=== PATIENT | male | born 1940 | race Caucasian/White ===

== ENCOUNTER 2017-07-26 06:45 | Day surgery (SDC) | payer MEDICARE, MEDICAID ==
[2017-07-25 08:57] LABS: BASOPHILS 0.4 % (0-2); EOSINOPHILS 3.3 % (0-7); HEMATOCRIT 44.9 % (42.0-54.0); HEMOGLOBIN 15.4 g/dL (13.5-17.5); IMMATURE GRANULOCYTES 0.3 % (0-5); LYMPHOCYTES 27.7 % (15-50); MCH 31.9 pg (26.0-34.0); MCHC 34.3 g/dL (31.0-37.0); MEAN PLATELET VOLUME 11.3 fL (7.4-10.4); MONOCYTES 6.7 % (2-11); NEUTROPHILS 61.6 % (40-80); PLATELET COUNT 149 10x3/uL (130-400); RBC 4.83 10x6/uL (4.20-6.10); RDW 14.1 % (11.5-14.5); WBC 6.7 10x3/uL (4.8-10.8)
[2017-07-25 09:18] LABS: APTT 24.1 SECONDS (22.8-39.4); INR 0.97 (0.85-1.17); PROTIME 12.5 SECONDS (11.6-15.0)
[~2017-07-26] VITALS: Ht 177.8 cm; Wt 126.6 kg
--- NOTE | ~2017-07-26 | OP ---
PATIENT NAME: SEEMA GAFFNEY MEDICAL RECORD: [id number] :41 LOCATION:[facility] ADMISSION DATE: SURGEON: RITESH BILLY MD DATE OF OPERATION: 07/26/2017 SURGEON: Ritesh Billy MD ANESTHESIA: MAC by Dr. Isaak Medina. PREOPERATIVE DIAGNOSES: History of bladder cancer, obstructive benign prostatic hypertrophy. FINDINGS: Obstructive benign prostatic hypertrophy with trilobar hyperplasia. Single ureteral orifices bilaterally. No bladder tumors. PROCEDURE: Cystoscopy. BLOOD LOSS: None. CLINICAL HISTORY: This is a 77-year-old male with a previous history of bladder cancer. This was treated 12 years ago at the [facility] in [place], [place]. He then had surveillance cystoscopy through the [facility]. The last cystoscopy was 6 years ago in [place] and thereafter, he left [place]. Since then, he has not had any further surveillance cystoscopy done. He does have some obstructive BPH symptoms and is using tamsulosin to treat this. He was a former smoker, 1 pack per day for 40 years and quit 20 years ago. He is not allergic to any medications. I am performing cystoscopy today to establish a baseline and to make sure that he does not have any bladder tumors. He was given Ancef 3 grams IV exploration manager to the OR. DESCRIPTION OF PROCEDURE: The patient was given IV sedation. He was placed in the dorsal lithotomy position and prepped and draped. A 21-Libyan cystoscope with 30-degree lens was used for visualization. Penile urethra was normal with no strictures. Prostatic urethra was obstructive with large prominent veins on the prostatic urethra. Going into the bladder, the bladder was mildly trabeculated. No bladder tumors were seen. Single ureteral orifices are seen on each side. The bladder was emptied through the scope, and then the scope was removed. I will start the patient on finasteride in order to shrink his prostate and the prostatic veins. He is already taking tamsulosin. TRANSINT:[id number] Voice Confirmation ID: [id number] DOCUMENT ID: [id number] RITESH BILLY MD at 1350 CC: [id number] DICTATION DATE: 07/26/17 1003 PROMOTIONS MANAGER: 07/26/17 1211 [facility] [address] [place] [address]
[~2017-07-26 06:45] MED LIST: FLOMAX0.4 MG PO; NORVASC5 MG PO; PRAVACHOL40 MG PO; ZANTAC150 MG PO; ZESTRIL40 MG PO
[2017-07-26 07:24] VITALS: BP 151/84; Ht 177.8 cm; Wt 126.6 kg
[2017-10-04] MEDS ORDERED: PROSCAR5 MG PO (13:26)
== END 2017-07-26 11:25 | disposition home or self-care (01) ==
LOC: D.OPS 06:45 → D.PAN 09:00 → D.OPS 09:00 → D.PAN 10:00 → D.OPS 11:25
PROVIDERS: Anesthesiology
DX: N40.1 Benign prostatic hyperplasia with lower urinary tract symptoms (principal); N13.8 Other obstructive and reflux uropathy; N40.0 Benign prostatic hyperplasia without lower urinary tract symptoms; N32.89 Other specified disorders of bladder; Z87.891 Personal history of nicotine dependence; Z85.51 Personal history of malignant neoplasm of bladder; Z01.812 Encounter for preprocedural laboratory examination

== ENCOUNTER → 2017-09-13 07:13 | Outpatient (CLI) | payer MEDICARE, MEDICAID ==
[~2017-09-13] VITALS: Ht 177.8 cm; Wt 129.5 kg
--- NOTE | ~2017-09-13 | HEMODYNAMI ---
PATIENT:SEEMA GAFFNEY MEDICAL RECORD: [id number] : 41 LOCATION:D.[facility] ADMISSION DATE: 09/13/17 Generatedon:09/13/20178:41 Patient name: SEEMA GAFFNEY Patient #: [id number] SSN: DO B: 1940 Date of study: 09/13/2017 Page: Of Hemodynamic Procedure Report Patient Data Patient Demographics Procedure consent was obtained First Name: SEEMA Gender: Male Last Name: YEIMY : 1940 [facility] Initial: JOSIE Age: 77 year(s) Patient #: [id number] Race: Unknown Additional ID: [id number] Contact details Address: [address] [place] [address] circle State: [place] City: [facility] Zip code: [address] Past Medical History Allergies: No known allergies Admission Admission Data Admission Date: 09/13/2017 Admission Time: 7:13 Lab Results Lab Result Date: 09/13/2017 Lab Result Time: 0:00 Biochemistry Name Units Result Min Max BUN mg/dl 15 --(--*-)-- 7 18 Creatinine mg/dl 0.9 --(-*--)-- 0.6 1.3 CBC Name Units Result Min Max Hemoglobin g/dl 15.8 --(--*-)-- 13.5 17.5 Procedure Procedure Types Cath Procedure Diagnostic Procedure [facility] w/Coronaries Aortic Root Angiography Sedation Charges Moderate Sedation up to 15 minutes Procedure Description Procedure Date Procedure Date: 09/13/2017 Procedure Start Time: 8:19 Procedure End Time: 8:40 Procedure Staff Name Function Mark Marroquin MD Performing Physician Karley Shelley RT Monitor Shemar Taylor RN Nurse Brandee Borges RT Scrub Procedure Data Cath Procedure Fluoroscopy Diagnostic fluoroscopy Total fluoroscopy Time: 5.1 time: 5.1 min min Diagnostic fluoroscopy Total fluoroscopy dose: 942 dose: 942 mGy mGy Contrast Material Contrast Material Type Amount (ml) Isovue 300 83 Entry Location Entry Primary Successful Side Size Upsize Upsize Entry Closure Villagomez ccessful Closure Location (Fr) 1 (Fr) 2 (Fr) Remarks Device Remarks Radial Right 6 Fr Mechanical artery Short Compression Femoral Right 5 Fr Exoseal artery Estimated blood loss: 5 ml Diagnostic catheters Device Type Used For End Catheter Placement DIAGNOSTIC Peewee 110cm LV Angiography 5Fr catheter ([id number]) MULTIPACK JL 4.0 5Fr Left Coronary catheter Angiography DIAGNOSTIC JL 5 5Fr Left Coronary catheter ([id number]) Angiography MULTIPACK 3DRC 5Fr Right Coronary catheter Angiography MULTIPACK Pigtail 5 Fr LV Angiography catheter MULTIPACK Pigtail 5 Fr Aortic Root catheter Angiography Procedure Complications No complications Procedure Medications Medication Administration Route Dosage 0.9% NaCl I.V. 100 ml/hr Oxygen etCO2 Nasal cannula 2 l/min Heparin Flush Bag added to field 2 bags (1000units/500ml NS) Lidocaine 2% added to field 20 Radial Cocktail added to field 1 syringe (Verapomil 2mg/Nitro 400mcg/Heparin 1500units) Versed I.V. 2 mg Fentanyl I.V. 100 mcg Radial Cocktail I.A. 1 syringe (Verapomil 2mg/Nitro 400mcg/Heparin 1500units) Hemodynamics Rest HGB: 15.8 (g/dl) Heart Rate: 69 (bpm) Pressure Samples Time Site Value (mmHg) Purpose Heart Use Rate(bpm) 8:33 LV 154/-2,19 EDP 86 8:34 AO 144/81(107) Pullback 84 8:34 LV 159/1,16 Pullback 84 Gradients Valve Time Site 1 Site 2 Mean SEP/DFP Peak To Heart Use (mmHg) (sec/min) Peak Rate (mmHg) (bpm) Aortic 8:34 LV AO 13 18 15 84 159/1,16 144/81(107) Calculations Valve P-P Mean Valve Index Valve Source Name Gradient Area Flow (cm2) Aortic 15 13 15 13 Snapshots Pre Cath Intra NCS Post Cath Vital Signs Time Heart Resp SPO2 etCO2 NIBP (mmHg) Rhythm Pain Sedation Rate (ipm) (%) (mmHg) Status Level (bpm) 8:05:45 76 16 96 36.8 157/91(121) NSR 0 (11) 10(A) , No pain 8:10:34 81 17 96 38.3 142/81(110) NSR 0 (11) 10(A) , No pain 8:15:23 71 16 96 35.3 156/79(124) NSR 0 (11) 10(A) , No pain 8:20:15 71 15 95 38.3 152/78(122) NSR 0 (11) 10(A) , No pain 8:25:02 92 16 92 33.1 129/89(105) NSR 0 (11) 10(A) , No pain 8:29:45 88 16 93 34.6 140/83(103) NSR 0 (11) 10(A) , No pain 8:35:04 87 16 95 36.1 121/86(111) NSR 0 (11) 10(A) , No pain 8:39:45 79 16 94 34.6 136/84(112) NSR 0 (11) 10(A) , No pain Medications Time Medication Route Dose Verified Delivered Reason Notes Effectiveness by by 8:05:53 0.9% NaCl I.V. 100 Shemar Shemar Per ml/hr Lorrohit Taylor physician RN RN 8:06:04 Oxygen etCO2 2 l/min Shemar Shemar Per Nasal Claudia Taylor physician cannula RN RN 8:06:14 Heparin Flush added 2 bags Shemar Shemar used for Bag to Lorigan Claudia procedure (1000units/500ml field RN RN NS) 8:06:27 Lidocaine 2% added 20ml Shemar Shemar for local to vial Lorigan Lorigan anesthetic field RN RN 8:06:51 Radial Cocktail added 1 Shemar Shemar used for (Verapomil to syringe Lorigan Tasneemigan procedure 2mg/Nitro field RN RN 400mcg/Heparin 1500units) 8:13:24 Versed I.V. 2 mg Shemar Shemar for sedation Claudia Taylor RN RN 8:13:34 Fentanyl I.V. 100 mcg Shemar Shemar for sedation Claudia Taylor RN RN 8:19:29 Radial Cocktail I.A. 1 Shemar Mark for (Verapomil syringe Claudia earl 2mg/Nitro RN 400mcg/Heparin 1500units) Procedure Log Time Note 7:40:23 Karley Shelley RT(R) sent for patient. Start room use. 7:48:56 Lab Result : BUN 15 mg/dl 7:48:56 Lab Result : Hemoglobin 15.8 g/dl 7:48:56 Lab Result : Creatinine 0.9 mg/dl 7:49:16 Patient allergic to No known allergies 7:49:21 Signed procedure consent form obtained from patient. 7:49:24 Time tracking: Regular hours (M-F 7:00 - 5:00) 7:49:28 Plan of Care:Hemodynamics will remain stable., Cardiac rhythm will remain stable., Comfort level will be maintained., Respiratory function will remain adequate., Patient/ family verbilizes understanding of procedure., Procedure tolerated without complication., Recovers from procedure without complications.. 7:50:36 Patient received from Pre/Post Procedure Room to CCL 1 Alert and oriented. Tansferred to table in Supine position. 7:50:41 Warm blankets applied, and lamonte hugger turned on for patient comfort. 7:50:42 Correct patient and procedure confirmed by team. 7:50:42 ECG and BP/O2 sat monitors applied to patient. 7:56:05 Vital chart was started 7:56:06 Full Disclosure recording started 7:56:21 Rhythm: sinus rhythm 7:56:51 H&P Date Dictated: 08/17/2017 Within 30 days and on chart., H&P Addendum completed by physician on day of procedure. (MUST COMPLETE FOR ALL OUTPATIENTS). 7:56:52 Pre-procedure instructions explained to patient. 7:56:52 Pre-op teaching completed and patient verbalized understanding. 7:56:56 Family in waiting room. 7:57:00 Patient NPO since Midnight. 7:57:04 Baseline sample Acquired. 7:57:11 Is the patient allergic to Iodine/contrast media? No. 7:57:17 Patient diabetic? No. 7:57:21 Previous problem with sedation/anesthesia? No ? 7:57:22 Snore? Yes 7:57:27 Sleep apnea? No 7:57:28 Deviated septum? No 7:57:29 Opens mouth fully? Yes 7:57:30 Sticks out tongue? Yes 7:57:44 Airway obstruction? Yes Asthma 7:57:53 Dentures? No ? 7:57:57 Pre procedure: right dorsailis pedis pulse 2+ Normal; easily identifiable; not easily obliterated 7:58:00 Modified Clyde's test Ulnar < 7 seconds 7:58:03 Patient pain scale 0/10 ?. 7:58:10 IV patent on arrival in left antecubital with 0.9% NaCl at [facility]. 7:58:13 Lab results completed and on chart. 7:58:44 Right Radial & Right Groin area was prepped with chlora-prep and draped in sterile fashion 7:58:45 Alarms reviewed by R. N. 7:58:45 Sharps counted by scrub and verified by R.N. 8:01:17 ACIST Syringe (64256) opened to sterile field. 8:01:18 Medline Cath Pack ([id number]) opened to sterile field. 8:01:18 Bag Decanter (2002S) opened to sterile field. 8:01:19 DIAGNOSTIC WIRE .035 260cm J wire (238344) opened to sterile field. 8:01:19 ACIST Hand Control (91564) opened to sterile field. 8:01:20 ACIST Manifold (13140) opened to sterile field. 8:01:21 MBrace Wrist Support ([id number]) opened to sterile field. 8:01:23 SHEATH 6Fr Prelude Radial ([id number]) opened to sterile field. 8:05:53 0.9% NaCl 100 ml/hr I.V. was administered by Shemar Taylor RN; Per physician; 8:06:04 Oxygen 2 l/min etCO2 Nasal cannula was administered by Shemar Taylor RN; Per physician; 8:06:14 Heparin Flush Bag (1000units/500ml NS) 2 bags added to field was administered by Shemar Taylor RN; used for procedure; 8:06:27 Lidocaine 2% 20ml vial added to field was administered by Shemar Taylor RN; for local anesthetic; 8:06:51 Radial Cocktail (Verapomil 2mg/Nitro 400mcg/Heparin 1500units) 1 syringe added to field was administered by Shemar Taylor RN; used for procedure; 8:07:39 Physician paged 8:07:41 Zero performed for pressure channel P1 8:13:00 Final Timeout: patient, procedure, and site verified with staff and physician. All members of the team are in agreement. 8:13:03 Right Radial site verified by team. 8:13:06 Physical assessment completed. ASA score P 2 - A patient with mild systemic disease as per Mark Marroquin MD. 8:13:09 Sedation plan: IV Moderate Sedation Medication:Versed, Fentanyl 8:13:24 Versed 2 mg I.V. was administered by Shemar Taylor RN; for sedation; 8:13:34 Fentanyl 100 mcg I.V. was administered by Shemar Taylor RN; for sedation; 8:18:33 Procedure started. 8:19:29 Radial Cocktail (Verapomil 2mg/Nitro 400mcg/Heparin 1500units) 1 syringe I.A. was administered by Mark Marroquin MD; for vasodilation; 8:19:36 Local anesthetic to right radial artery with Lidocaine 2% by Mark Marroquin MD.INITIAL ACCESS ONLY 8:19:38 A 6 Fr Short sheath was inserted into the Right Radial artery 8:20:18 A DIAGNOSTIC Peewee 110cm 5Fr catheter ([id number]) was advanced over the wire and used for LV Angiography. Catheter removed, patient has radial loop 8:21:20 SHEATH Prelude 5Fr 0.035 (QLA-9O-13-035) opened to sterile field. 8:21:29 Use device set Multipack Set 8:21:38 DIAGNOSTIC Multipack 5Fr catheter set ([id number]) opened to sterile field. 8:22:49 Local anesthetic to right femoral artery with Lidocaine 2% by Mark Marroquin MD.ADDITIONAL ACCESS 8:24:06 A 5 Fr sheath was inserted into the Right Femoral artery 8:24:45 A MULTIPACK JL 4.0 5Fr catheter was advanced over the wire and used for Left Coronary Angiography. removed, unable to cannulate 8:27:23 A DIAGNOSTIC JL 5 5Fr catheter ([id number]) was advanced over the wire and used for Left Coronary Angiography. 8:29:32 Catheter removed. 8:30:21 A MULTIPACK 3DRC 5Fr catheter was advanced over the wire and used for Right Coronary Angiography. 8:31:48 Catheter removed. 8:32:24 A MULTIPACK Pigtail 5 Fr catheter was advanced over the wire and used for LV Angiography. 8:33:49 LV gram done using MONTALVO 8:33:51 Injector settings: Ml/sec: 10, Volume: 20, 8:33:52 LV hemodynamics recorded. 8:33:56 EF : 60 % 8:34:48 A MULTIPACK Pigtail 5 Fr catheter was advanced over the wire and used for Aortic Root Angiography. 8:35:07 Procedure type changed to Cath procedure, Diagnostic procedure, LHC, LHC w/Coronaries, Aortic Root Angiography, Sedation Charges, Moderate Sedation up to 15 minutes 8:35:13 Catheter removed. 8:35:33 Sheath removed intact; hemostasis achieved with Exoseal to the Right Femoral artery. 8:35:42 Insertion/operative site no bleeding no hematoma. 8:35:45 Post right femoral artery:stable, clean and dry 8:35:52 Sheath removed intact; hemostasis achieved with Mechanical Compression to the Right Radial artery. 8:36:09 Post right radial artery:stable, clean and dry 8:36:10 Procedure ended.(Physican Out) 8:36:39 Fluoroscopy time 05.10 minutes. 8:36:43 Flurop Dose total: 942 8:36:43 Fluoroscopy dose: 942 mGy 8:36:58 Contrast amount:Isovue 300 83ml. 8:37:00 Sharps counted by scrub and verified by R.N. 8:37:02 TR band inflated with 12cc of air. 8:37:07 Post Procedure Pulses reassessed and unchanged 8:37:10 Post-procedure physical assessment completed. ASA score P 2 - A patient with mild systemic disease as per Mark Marroquin MD. 8:37:12 Post procedure rhythm: unchanged. 8:37:20 Estimated blood loss: 5 ml 8:37:21 Post procedure instruction explained to patient.Patient verbalizes understanding. 8:37:22 Patient needs reinforcement of post procedure teaching. 8:37:27 Procedure Complication : No complications 8:37:31 See physician's report for complete and final results. 8:37:44 EXOSEAL 5Fr (EX500) opened to sterile field. 8:37:45 TR BAND Standard ([id number]) opened to sterile field. 8:38:06 Procedure and supply charges have been captured, reviewed, submitted and are correct. 8:40:20 Vital chart was stopped 8:40:23 Report given to Pre/Post Procedure Room. 8:40:25 Patient transfered to Pre/Post Procedure Room with Stretcher. 8:40:35 Procedure ended. 8:40:35 Full Disclosure recording stopped 8:40:38 End room use (Document Last) Device Usage Item Name Manufacture Quantity Catalog Number Hospital Part Current M inimal Lot# / Charge Number Stock Stock Serial# Code ACIST Syringe Acist 1 60522 722371 559863 734983 2 0 (32369) [employer] Inc Medline Cath Cardinal 1 [id number] 818313 31469 727963 5 Pack Health ([id number]) Bag Decanter Microtek 1 840969 00888 681253 5 () Medical Inc. DIAGNOSTIC WIRE St Henok 1 570329 799567 172077 697588 3 0 .035 260cm J wire (303152) ACIST Hand Acist 1 81100 361761 571559 398566 5 Control (67212) [employer] Inc ACIST Manifold Acist 1 10191 717076 126031 186001 5 (05548) Medical Systems Inc MBrace Wrist Advanced 1 140-0250-00 219808 58231 349156 5 Support Vascular ([id number]) Dynamics SHEATH 6Fr Merit 1 [id number] 995066 419145 930480 5 Prelude Radial Medical ([id number]) DIAGNOSTIC Terumo 1 40-3107 414386 085663 796155 5 Peewee 110cm 5Fr catheter (682719) SHEATH Prelude Merit 1 ZUE-8H-12-035 269479 556596 353911 5 5Fr 0.035 Medical (NLE-3I-81-035) DIAGNOSTIC Cardinal 1 [id number] 591156 36383 153145 3 0 Multipack 5Fr Health catheter set (BK4097) MULTIPACK JL Cardinal 1 387034 5 4.0 5Fr Health catheter DIAGNOSTIC JL 5 Cardinal 1 [id number] 941608 795778 335292 5 5Fr catheter Health ([id number]) MULTIPACK 3DRC Cardinal 1 777011 5 5Fr catheter Health MULTIPACK Cardinal 1 297205 5 Pigtail 5 Fr Health catheter EXOSEAL 5Fr Cardinal 1 EX500 852105 554642 116092 1 0 (EX500) Health TR BAND Terumo 1 [id number] 719234 217774 586756 4 0 Standard ([id number]) Signature Audit [place] Stage Time Signature Unsigned Intra-Procedure 09/13/2017 Karley 8:41:06 AM Counts RT(R) Signatures Monitor : Karley Signature : Counts RT Date : Time : [place] [address] [place] [address]
[2017-09-13 07:09] LABS: BASOPHILS 0.6 % (0-2); EOSINOPHILS 2.9 % (0-7); HEMATOCRIT 45.7 % (42.0-54.0); HEMOGLOBIN 15.8 g/dL (13.5-17.5); IMMATURE GRANULOCYTES 0.3 % (0-5); LYMPHOCYTES 27.8 % (15-50); MCH 32.6 pg (26.0-34.0); MCHC 34.6 g/dL (31.0-37.0); MCV 94.2 fL (80.0-100.0); MEAN PLATELET VOLUME 11.4 fL (7.4-10.4); MONOCYTES 8.9 % (2-11); NEUTROPHILS 59.5 % (40-80); RBC 4.85 10x6/uL (4.20-6.10); RDW 13.8 % (11.5-14.5)
[2017-09-13 07:13] LABS: PLATELET COUNT 192 10x3/uL (130-400)
[~2017-09-13 07:13] MED LIST changes: +HYDROCODONE-APA1 TAB PO; +KEFLEX500 MG PO; +PROSCAR5 MG PO; +VIBRAMYCIN 100100 MG PO
[2017-09-13 07:17] VITALS: BP 185/92; Ht 177.8 cm; Wt 129.5 kg
[2017-09-13 07:28] LABS: CALC OSMOLALITY 282 mosm/kg (275-300); CALCIUM 8.6 mg/dL (8.5-10.1); CARBON DIOXIDE 28.4 mmol/L (21.0-32.0); CHLORIDE - SERUM 105 mmol/L (98-107); CREATININE - SERUM 0.9 mg/dL (0.6-1.3); GLUCOSE 108 mg/dL (74-106); POTASSIUM - SERUM 3.7 mmol/L (3.5-5.1); SODIUM 141 mmol/L (136-145); UREA NITROGEN 15 mg/dL (7-18); eGFR NON AFRICAN AMERICAN 87 mL/min (90-120)
== END | disposition home or self-care (01) ==
LOC: D.CATH 07:13
PROVIDERS: Internal Medicine Cardiovascular Disease
DX: I25.119 Atherosclerotic heart disease of native coronary artery with unspecified angina pectoris (principal); Z01.812 Encounter for preprocedural laboratory examination

== ENCOUNTER → 2017-09-20 07:15 | Outpatient (CLI) | payer MEDICARE, MEDICAID ==
[2017-09-13 07:17] VITALS: BMI 40.9
== END | disposition home or self-care (01) ==
LOC: D.MRI 07:15
DX: R22.9 Localized swelling, mass and lump, unspecified (principal)

== ENCOUNTER → 2017-09-24 20:56 | Outpatient (CLI) | payer MEDICARE, MEDICAID ==
[2017-09-13 07:17] VITALS: BMI 40.9
== END | disposition home or self-care (01) ==
LOC: D.LABREF 20:56
DX: M19.011 Primary osteoarthritis, right shoulder (principal); Z11.8 Encounter for screening for other infectious and parasitic diseases

== ENCOUNTER 2017-10-05 05:00 | Inpatient (IN) | payer MEDICARE, MEDICAID ==
[2017-10-04 14:19] LABS: HEMATOCRIT 46.1 % (42.0-54.0); HEMOGLOBIN 16.1 g/dL (13.5-17.5); MCH 32.7 pg (26.0-34.0); MCHC 34.9 g/dL (31.0-37.0); MCV 93.7 fL (80.0-100.0); MEAN PLATELET VOLUME 11.5 fL (7.4-10.4); RBC 4.92 10x6/uL (4.20-6.10); RDW 13.6 % (11.5-14.5); WBC 7.7 10x3/uL (4.8-10.8)
[~2017-10-05] VITALS: Ht 177.8 cm; Wt 129.5 kg
--- NOTE | ~2017-10-05 | OP ---
PATIENT NAME: SEEMA GAFFNEY MEDICAL RECORD: [id number] :41 LOCATION:D[facility] ADMISSION DATE:10/05/17 SURGEON: MANJIT MEDEL DO DATE OF OPERATION: 10/05/2017 PROCEDURE PERFORMED: Right reverse total shoulder arthroplasty and excision of lipoma of the right shoulder. PREOPERATIVE DIAGNOSES: Right shoulder rotator cuff arthropathy and right shoulder lipoma. POSTOPERATIVE DIAGNOSES: Right shoulder rotator cuff arthropathy and right shoulder lipoma. INDICATIONS: Mr. Gaffney is a 77-year-old right-hand dominant male who presented to my office with complaints of shoulder pain and inability to raise his arms above his head with any strength. He can move it, he had motion, but he did not have any strength. He had an x-ray, which showed a high riding humeral head and almost up onto the acromion. This indicated a rotator cuff arthropathy. He also had a large what appeared to be a lipoma under the skin of the shoulder, right where the incision would be and I got an MRI this morning to check that to make sure there was not anything malignant and to also evaluate the rotator cuff. It indeed showed a rotator cuff arthropathy with retraction and atrophy of the supraspinatus and a large lipoma of the soft tissue over the right shoulder. I brought him back to the office to talk to him about it and he said that he would like to proceed forward with the surgery and that he would like me to remove that lipoma during the surgery due to the fact that it would be on the way dissection down to the shoulder joint itself. He was aware of the risks and benefits of the procedure including infection, bleeding, damage to the axillary nerve, need for further surgery, and even . He consented to the procedure and was set up for today 10/05/2017 for the procedure. SURGEON: Manjit Medel DO DESCRIPTION OF THE PROCEDURE: The patient was given a block in the preoperative area by anesthesia, taken to the operative suite, laid in supine position, intubated and sedated, given 900 mg of clindamycin preoperatively. The right shoulder was prepped and draped after the patient had been sat up in the beach chair position. After he was prepped and draped in sterile fashion, a timeout was performed. Everyone was in agreement of correct side, site, patient, and procedure. Careful dissection was made down through the skin through the deltopectoral interval. Once the skin was incised, a large lipoma was there and it was dissected out and removed and sent to the lab for identification. Once this was done, the dissection continued down to the shoulder joint, encountering the cephalic vein, which was taken medially. All the branches were coagulated and tied off as we got down to the clavipectoral fascia. This was incised and the shoulder joint was then exposed. The subscapularis tendon was encountered as well as the bicep tendon. The bicep tendon was then tenodesed at the site where the pec was released, which was released at the superior margin of the pec insertion and the pec was released from superior to inferior approximately 1 cm. Then, the biceps tendon was tenodesed to that stump site on the humerus. The bicep was then removed and the rotator interval was opened all the way to the coracoid. The subscap was then taken off. A Hohmann was then placed around the inferior portion of the neck and the brown retractor was placed around the posterior part of the humerus after adhesions were then broken out by a Arzate in OPERATIVE REPORT [id number] SEEMA GAFFNEY JOSIE the subacromial space and on the deltoid. The humeral head was then dislocated. Bleeders were coagulated throughout the procedure with the plasma blade and then the intramedullary guide was put into the humerus and the humeral head cut was made. After this was done, the glenoid was exposed using 2 retractors and adhesions of the subscapularis were also released off the anterior portion of the scapula. The labrum was removed with careful dissection circumferentially around the glenoid and then a centering pin was put into place. Then, the reamers were used to clear off the space for the glenosphere. Glenosphere was measured to be a 30 central screw. This was put into place and had good bite when put in on the superior, posterior, anterior and inferior screws were put into place. Superior-posterior was 26, anterior-inferior was 20 mm. These locked in to the baseplate. Then used a lateralized glenosphere. This was put into place and impacted on and tightened down and then the humerus was exposed again. Broaching began. I broached up to a 6 and then the planer was used to plane off the humeral head. The implant trial was then put into place and reduced, got a nice reduction. The conjoined tendon was too tight as well as deltoid was checked as well and the shoulder had good range of motion. This was then dislocated and then removed and the actual implant was put in. A 6 stem and the poly was put into place and then the shoulder was reduced and again had good motion and the conjoined tendon was checked and seemed to be tight, but not too tight as well as the deltoid. The wound was then thoroughly irrigated, any bleeders were coagulated or tied off at that time were exposed. A drain was then put into place of the lateral shoulder and Harry was put into the shoulder joint. The deltopectoral interval was then closed with 3-0 Vicryl in a rndeto-ch-edljy fashion and then the skin was closed with 2-0 Vicryl in inverted interrupted fashion. A 4-0 Monocryl was then ran on the skin subcuticularly and then a Prineo Dermabond skin glue was put on the wound. Adaptic, 4 x 4's, ABD and Medipore tape were then placed over. The drain had been tied down as well and then hooked up to the drain. The patient was then awakened and put in a sling and then taken to recovery in stable condition. BLOOD LOSS: Approximately 150 mL. COMPLICATIONS: None. TRANSINT:[id number] Voice Confirmation ID: [id number] DOCUMENT ID: [id number] MANJIT MEDEL DO at 1121 CC: [id number] DICTATION DATE: 10/05/17909 CLASS B DRIVER: 10/05/17 [address] [facility] [address] [place] [address]
[~2017-10-05 05:00] MED LIST changes: -HYDROCODONE-APA1 TAB PO; -KEFLEX500 MG PO; -VIBRAMYCIN 100100 MG PO
[2017-10-05 10:37] VITALS: BP 122/66
[2017-10-05 10:39] VITALS: BP 122/66; Ht 177.8 cm; Wt 129.5 kg
[2017-10-05 20:06] VITALS: BP 102/64
[2017-10-05 23:56] VITALS: BP 123/79
[2017-10-06 02:55] VITALS: BP 123/79
[2017-10-06 05:39] LABS: BASOPHILS 0.2 % (0-2); EOSINOPHILS 0.2 % (0-7); IMMATURE GRANULOCYTES 0.3 % (0-5); LYMPHOCYTES 10.9 % (15-50); MCH 31.8 pg (26.0-34.0); MCHC 33.4 g/dL (31.0-37.0); MCV 95.2 fL (80.0-100.0); MEAN PLATELET VOLUME 11.4 fL (7.4-10.4); MONOCYTES 9.8 % (2-11); NEUTROPHILS 78.6 % (40-80); PLATELET COUNT 170 10x3/uL (130-400); RBC 3.99 10x6/uL (4.20-6.10); RDW 13.8 % (11.5-14.5)
[2017-10-06 05:44] LABS: HEMOGLOBIN 12.7 g/dL (13.5-17.5); WBC 13.1 10x3/uL (4.8-10.8)
[2017-10-06 06:21] LABS: ALBUMIN 3.1 g/dL (3.4-5.0); ALKALINE PHOSPHATASE 45 U/L (46-116); ALT (SGPT) 30 U/L (10-68); CALC OSMOLALITY 286 mosm/kg (275-300); CARBON DIOXIDE 28.6 mmol/L (21.0-32.0); CHLORIDE - SERUM 107 mmol/L (98-107); GLUCOSE 111 mg/dL (74-106); POTASSIUM - SERUM 4.3 mmol/L (3.5-5.1); SODIUM 142 mmol/L (136-145); UREA NITROGEN 20 mg/dL (7-18); eGFR NON AFRICAN AMERICAN 77 mL/min (90-120)
[2017-10-06 06:26] VITALS: BP 128/99
[2017-10-06 09:25] VITALS: BP 125/54
[2017-10-06 12:35] VITALS: BP 115/76
[2017-10-06] MEDS ORDERED: VIBRAMYCIN 100100 MG PO (12:46)
[2017-10-06] MEDS ORDERED: HYDROCODONE-APA1 TAB PO (12:46)
[2017-10-06 15:20] VITALS: BP 156/76
[2017-10-06 20:00] VITALS: BP 131/66
[2017-10-07] VITALS: BP 142/77
[2017-10-07 04:00] VITALS: BP 163/88
[2017-10-07 05:40] LABS: HEMOGLOBIN 12.2 g/dL (13.5-17.5); MCH 31.6 pg (26.0-34.0); MCV 95.9 fL (80.0-100.0); MEAN PLATELET VOLUME 11.5 fL (7.4-10.4); RBC 3.86 10x6/uL (4.20-6.10); RDW 13.8 % (11.5-14.5); WBC 10.8 10x3/uL (4.8-10.8)
[2017-10-07 07:45] VITALS: BP 141/72
[2017-10-07] MEDS ORDERED: HYDROCODONE-APA1 TAB PO (07:48)
[2017-10-07] MEDS ORDERED: KEFLEX500 MG PO (07:50)
== END 2017-10-07 11:55 | disposition home or self-care (01) | DRG 465 ==
LOC: D.SDCHOLD 05:00 → D.MS 05:00 → D.SDCHOLD 07:00 → D.MS 10:08 → D.SDCHOLD 10:15 → D.MS 10-07 11:55
PROVIDERS: Anesthesiology; Family Medicine; Orthopaedic Surgery
PROC: 0JBD0ZZ Excision of Right Upper Arm Subcutaneous Tissue and Fascia, Open Approach (ICD-10-PCS; 2017-10-05)
PROC: 0RRJ00Z Replacement of Right Shoulder Joint with Reverse Ball and Socket Synthetic Substitute, Open Approach (ICD-10-PCS; principal; 2017-10-05 07:00)
DX: M75.121 Complete rotator cuff tear or rupture of right shoulder, not specified as traumatic (principal); D17.21 Benign lipomatous neoplasm of skin and subcutaneous tissue of right arm; I10 Essential (primary) hypertension; K21.9 Gastro-esophageal reflux disease without esophagitis; Z87.891 Personal history of nicotine dependence

== ENCOUNTER → 2017-10-31 17:25 | Outpatient (CLI) | payer MEDICARE, MEDICAID ==
[2017-10-05 10:39] VITALS: BMI 40.9
[~2017-10-31 17:25] MED LIST changes: +HYDROCODONE-APA1 TAB PO; +KEFLEX500 MG PO; +VIBRAMYCIN 100100 MG PO
== END | disposition home or self-care (01) ==
LOC: D.LABREF 17:25
DX: N39.0 Urinary tract infection, site not specified (principal)

== ENCOUNTER → 2017-11-14 17:38 | Outpatient (CLI) | payer MEDICARE, MEDICAID ==
[2017-10-05 10:39] VITALS: BMI 40.9
== END | disposition home or self-care (01) ==
LOC: D.LABREF 17:38
DX: R31.9 Hematuria, unspecified (principal); D72.829 Elevated white blood cell count, unspecified

== ENCOUNTER 2018-01-22 08:55 | Day surgery (SDC) | payer MEDICARE, MEDICAID ==
[~2018-01-22] VITALS: Ht 177.8 cm; Wt 124.3 kg
--- NOTE | ~2018-01-22 | OP ---
PATIENT NAME: SEEMA GAFFNEY MEDICAL RECORD: [id number] :41 [facility] DATE: SURGEON: LEXI BILLY MD DATE OF OPERATION: 01/22/2018 SURGEON: Lexi Billy MD ANESTHESIA: General anesthesia by Sharon Murphy CRNA PREOPERATIVE DIAGNOSIS: History of bladder cancer, obstructive benign prostatic hyperplasia. PROCEDURE: Cystoscopy, UroLift procedure with 5 units used. FINDINGS: 30 gram prostate on digital rectal examination. Cystoscopy showed bilateral lateral lobe obstruction of the prostate. In the bladder, there were single ureteral orifices bilaterally. The bladder was trabeculated and no bladder tumors were seen. ESTIMATED BLOOD LOSS: None. CLINICAL HISTORY: This is a 77-year-old male with a previous history of bladder cancer. He will require surveillance cystoscopy. He also has obstructive BPH with recurrent urinary tract infections. He has been on tamsulosin and finasteride since 07/22/2017. For years, he has been on tamsulosin. [facility] [place] [place]. His IPSS score is 24, which is severe and his quality of life score is 4, which is "moderately dissatisfied" with the voiding symptoms. At the time of cystoscopy, he wishes to have the UroLift procedures performed. He is not allergic to any medications. He was given Ancef zoning assistant to the OR. DESCRIPTION OF PROCEDURE: The patient was given induction of general anesthesia. He was then placed into dorsal lithotomy position and prepped and draped. The UroLift scope was introduced into the urethra. The urethra shows no signs of tumors or strictures. The prostate is obstructive with large lateral lobes. The bladder neck is not obstructive. Going into the bladder, there were single ureteral orifices on each side. The bladder is trabeculated. No bladder tumors were seen. Our first pair of UroLift implant was placed, one on each side at the bladder neck region. We went distal to the bladder neck about 1.5-2 cm and then implanted the UroLift device at the anterior lateral urethral surface. We then placed our second pair of the devices at the level of the verumontanum or just proximal to the verumontanum. Again, these were placed at the lateral anterior portion of the urethra. Our very first implant suture pulled through without locking on the prostatic capsule. Therefore, this device really did not to serve any function, but nevertheless, it was fired. There are 4 implants that have stayed permanently. The patient's bladder was emptied through the cystoscope sheath and then the scope was removed. I will see the patient in followup in 2 weeks' time to check on his voiding symptoms. TRANSINT:[id number] Voice Confirmation ID: [id number] DOCUMENT ID: [id number] OPERATIVE REPORT [id number] SEEMA GAFFNEY ROBERT S MD at 1001 CC: [id number] DICTATION DATE: 01/22/18 1414 HUNTING SALES LEADER: 01/22/181915 [facility] 01/22/18 [facility] [address] [place] [address]
[2018-01-22 09:22] LABS: BASOPHILS 0.4 % (0-2); EOSINOPHILS 3.1 % (0-7); HEMATOCRIT 45.4 % (42.0-54.0); HEMOGLOBIN 15.4 g/dL (13.5-17.5); IMMATURE GRANULOCYTES 0.3 % (0-5); LYMPHOCYTES 31.2 % (15-50); MCH 31.5 pg (26.0-34.0); MCHC 33.9 g/dL (31.0-37.0); MCV 92.8 fL (80.0-100.0); MEAN PLATELET VOLUME 11.6 fL (7.4-10.4); MONOCYTES 6.7 % (2-11); NEUTROPHILS 58.3 % (40-80); RBC 4.89 10x6/uL (4.20-6.10); RDW 14.5 % (11.5-14.5); WBC 7.1 10x3/uL (4.8-10.8)
[2018-01-22 09:25] LABS: PLATELET COUNT 186 10x3/uL (130-400)
[2018-01-22 09:50] VITALS: BP 144/88; Ht 177.8 cm; Wt 124.3 kg
[2018-01-22 09:57] LABS: APTT 25.5 SECONDS (22.8-39.4); INR 1.02 (0.85-1.17); PROTIME 13.1 SECONDS (11.6-15.0)
[2018-01-23] MEDS ORDERED: LEVOFLOXACIN500 MG PO (00:11)
== END 2018-01-22 16:25 | disposition home or self-care (01) ==
LOC: D.OPS 08:55 → D.PAN 11:30 → D.OPS 12:55 → D.PAN 13:40 → D.OPS 14:30
PROVIDERS: Anesthesiology
DX: N40.1 Benign prostatic hyperplasia with lower urinary tract symptoms (principal); N13.8 Other obstructive and reflux uropathy; Z85.51 Personal history of malignant neoplasm of bladder

== ENCOUNTER 2018-01-22 23:07 | Emergency (ER) | payer MEDICARE, MEDICAID ==
[~2018-01-22] VITALS: Ht 177.8 cm; Wt 136.4 kg
[2018-01-22 23:20] VITALS: Ht 177.8 cm; Wt 136.4 kg
[2018-01-23 00:02] LABS: APPEARANCE CLOUDY (CLEAR); BILIRUBIN NEGATIVE (NEGATIVE); COLOR BROWN (YELLOW); GLUCOSE NEGATIVE (NEGATIVE); KETONE NEGATIVE (NEGATIVE); NITRITE NEGATIVE (NEGATIVE); PROTEIN 3+ mg/dL (NEGATIVE); UROBILINOGEN NORMAL (NORMAL)
[2018-01-23 00:05] LABS: BACTERIA MODERATE /hpf (NONE SEEN); EPITHELIAL CELLS 0-5 /hpf (0-5); RED CELLS - URINE 25-50 /hpf (0-5); WHITE CELLS - URINE 0-5 /hpf (0-5); YEAST <1+ /hpf (NONE SEEN)
[2018-01-23] MEDS ORDERED: LEVOFLOXACIN500 MG PO (00:11)
[2018-01-23 00:33] VITALS: BP 139/87
== END 2018-01-23 00:34 | disposition home or self-care (01) ==
LOC: D.ER 23:07
PROVIDERS: Family Medicine
DX: R33.8 Other retention of urine (principal); I10 Essential (primary) hypertension; K21.9 Gastro-esophageal reflux disease without esophagitis; Z85.51 Personal history of malignant neoplasm of bladder; Z87.438 Personal history of other diseases of male genital organs

== ENCOUNTER 2018-01-25 08:33 | Emergency (ER) | payer MEDICARE, MEDICAID ==
[~2018-01-25] VITALS: Ht 177.8 cm; Wt 127.3 kg
[~2018-01-25 08:33] MED LIST changes: +LEVOFLOXACIN500 MG PO
[2018-01-25 08:39] VITALS: Ht 177.8 cm; Wt 127.3 kg
[2018-01-25 09:09] VITALS: BP 142/83
[2018-01-26] MEDS ORDERED: CIPRO500 MG PO (17:48)
== END 2018-01-25 09:10 | disposition home or self-care (01) ==
LOC: D.ER 08:33
DX: T83.84XA Pain due to genitourinary prosthetic devices, implants and grafts, initial encounter (principal)

== ENCOUNTER 2018-01-26 16:41 | Emergency (ER) | payer MEDICARE, MEDICAID ==
[~2018-01-26] VITALS: Ht 177.8 cm; Wt 127.3 kg
[2018-01-26 16:45] VITALS: Ht 177.8 cm; Wt 127.3 kg
[2018-01-26 17:03] LABS: APPEARANCE CLOUDY (CLEAR); BACTERIA FEW /hpf (NONE SEEN); BILIRUBIN NEGATIVE (NEGATIVE); COLOR YELLOW (YELLOW); EPITHELIAL CELLS 0-5 /hpf (0-5); GLUCOSE NEGATIVE (NEGATIVE); KETONE NEGATIVE (NEGATIVE); NITRITE NEGATIVE (NEGATIVE); PROTEIN 1+ mg/dL (NEGATIVE); RED CELLS - URINE >50 /hpf (0-5); UROBILINOGEN NORMAL (NORMAL); WHITE CELLS - URINE 0-5 /hpf (0-5)
[2018-01-26] MEDS ORDERED: CIPRO500 MG PO (17:48)
[2018-01-26 17:55] VITALS: BP 142/64
== END 2018-01-26 17:56 | disposition home or self-care (01) ==
LOC: D.ER 16:41
PROVIDERS: Emergency Medicine
DX: N39.0 Urinary tract infection, site not specified (principal); R33.9 Retention of urine, unspecified

== ENCOUNTER → 2018-02-06 18:56 | Outpatient (CLI) | payer MEDICARE, MEDICAID ==
[2018-01-26 16:45] VITALS: BMI 40.2
[~2018-02-06 18:56] MED LIST changes: +CIPRO500 MG PO
== END | disposition home or self-care (01) ==
LOC: D.LABREF 18:56
DX: D72.829 Elevated white blood cell count, unspecified (principal)

== ENCOUNTER 2018-02-28 19:08 | Emergency (ER) | payer MEDICARE, MEDICAID ==
[~2018-02-28] VITALS: Ht 177.8 cm; Wt 127.3 kg
[2018-02-28 19:24] VITALS: Ht 177.8 cm; Wt 127.3 kg
[2018-02-28 19:59] LABS: APPEARANCE CLEAR (CLEAR); BILIRUBIN NEGATIVE (NEGATIVE); COLOR YELLOW (YELLOW); GLUCOSE NEGATIVE (NEGATIVE); KETONE NEGATIVE (NEGATIVE); NITRITE NEGATIVE (NEGATIVE); PROTEIN NEGATIVE (NEGATIVE); RED CELLS - URINE 0-5 /hpf (0-5); SPECIFIC GRAVITY 1.015 (1.005-1.020); UROBILINOGEN NORMAL (NORMAL); WHITE CELLS - URINE 0-5 /hpf (0-5)
[2018-02-28 21:58] LABS: BASOPHILS 0.5 % (0-2); EOSINOPHILS 3.2 % (0-7); HEMATOCRIT 45.3 % (42.0-54.0); HEMOGLOBIN 15.6 g/dL (13.5-17.5); IMMATURE GRANULOCYTES 0.4 % (0-5); MCH 31.6 pg (26.0-34.0); MCHC 34.4 g/dL (31.0-37.0); MCV 91.7 fL (80.0-100.0); MEAN PLATELET VOLUME 11.2 fL (7.4-10.4); MONOCYTES 8.6 % (2-11); NEUTROPHILS 58.3 % (40-80); PLATELET COUNT 192 10x3/uL (130-400); RBC 4.94 10x6/uL (4.20-6.10); RDW 14.5 % (11.5-14.5); WBC 8.4 10x3/uL (4.8-10.8)
[2018-02-28 22:13] LABS: ALKALINE PHOSPHATASE 58 U/L (46-116); ALT (SGPT) 26 U/L (10-68); BILIRUBIN - TOTAL 0.37 mg/dL (0.2-1.3); CALC OSMOLALITY 288 mosm/kg (275-300); CARBON DIOXIDE 26.5 mmol/L (21.0-32.0); CHLORIDE - SERUM 106 mmol/L (98-107); CREATININE - SERUM 0.9 mg/dL (0.6-1.3); GLUCOSE 103 mg/dL (74-106); POTASSIUM - SERUM 4.1 mmol/L (3.5-5.1); PROTEIN - SERUM 7.6 g/dL (6.4-8.2); SODIUM 144 mmol/L (136-145); UREA NITROGEN 18 mg/dL (7-18); eGFR NON AFRICAN AMERICAN 87 mL/min (90-120)
[2018-02-28] MEDS ORDERED: CIPRO500 MG PO (23:05)
[2018-02-28 23:55] VITALS: BP 168/78
== END 2018-02-28 23:57 | disposition home or self-care (01) ==
LOC: D.ER 19:08
PROVIDERS: Emergency Medicine
DX: N39.0 Urinary tract infection, site not specified (principal); R10.9 Unspecified abdominal pain

== ENCOUNTER → 2018-03-06 18:28 | Outpatient (CLI) | payer MEDICARE, MEDICAID ==
[2018-02-28 19:24] VITALS: BMI 40.2
== END | disposition home or self-care (01) ==
LOC: D.LABREF 18:28
DX: D72.829 Elevated white blood cell count, unspecified (principal)

== ENCOUNTER 2018-06-04 06:47 | Emergency (ER) | payer MEDICARE, MEDICAID ==
[~2018-06-04] VITALS: Ht 177.8 cm; Wt 127.3 kg
[2018-06-04 06:56] VITALS: Ht 177.8 cm; Wt 127.3 kg
[2018-06-04 07:56] LABS: BASOPHILS 0.4 % (0-2); EOSINOPHILS 2.6 % (0-7); HEMATOCRIT 44.8 % (42.0-54.0); HEMOGLOBIN 15.2 g/dL (13.5-17.5); IMMATURE GRANULOCYTES 0.4 % (0-5); LYMPHOCYTES 24.7 % (15-50); MCH 31.5 pg (26.0-34.0); MCHC 33.9 g/dL (31.0-37.0); MCV 92.9 fL (80.0-100.0); MEAN PLATELET VOLUME 11.2 fL (7.4-10.4); MONOCYTES 8.5 % (2-11); NEUTROPHILS 63.4 % (40-80); PLATELET COUNT 187 10x3/uL (130-400); RBC 4.82 10x6/uL (4.20-6.10); RDW 14.2 % (11.5-14.5); WBC 7.3 10x3/uL (4.8-10.8)
[2018-06-04 08:13] LABS: ALBUMIN 4.1 g/dL (3.4-5.0); ALKALINE PHOSPHATASE 57 U/L (46-116); ALT (SGPT) 32 U/L (10-68); BILIRUBIN - TOTAL 0.47 mg/dL (0.2-1.3); CALC OSMOLALITY 287 mosm/kg (275-300); CALCIUM 8.9 mg/dL (8.5-10.1); CARBON DIOXIDE 26.6 mmol/L (21.0-32.0); CHLORIDE - SERUM 108 mmol/L (98-107); CREATININE - SERUM 0.9 mg/dL (0.6-1.3); GLUCOSE 119 mg/dL (74-106); PROTEIN - SERUM 7.5 g/dL (6.4-8.2); SODIUM 144 mmol/L (136-145); UREA NITROGEN 12 mg/dL (7-18); eGFR NON AFRICAN AMERICAN 87 mL/min (90-120)
[2018-06-04 08:24] LABS: PROTIME 12.7 SECONDS (11.6-15.0)
[2018-06-04 08:25] LABS: CREATINE KINASE 106 UL (21-232); TROPONIN-I < 0.017 ng/mL (0.000-0.060)
[2018-06-04] MEDS ORDERED: ACETAMINOPHEN500 M1 PO (09:46)
[2018-06-04] MEDS ORDERED: IBUPROFEN800 MG PO (09:46)
[2018-06-04] MEDS ORDERED: CYCLOBENZAPRINE10 MG PO (09:46)
[2018-06-04 10:01] VITALS: BP 143/86
== END 2018-06-04 09:55 | disposition home or self-care (01) ==
LOC: D.ER 06:47
PROVIDERS: Family Medicine
DX: M25.512 Pain in left shoulder (principal); M48.32 Traumatic spondylopathy, cervical region; R20.2 Paresthesia of skin; M54.12 Radiculopathy, cervical region

== ENCOUNTER 2018-08-21 09:42 | Emergency (ER) | payer MEDICARE, MEDICAID ==
[~2018-08-21] VITALS: Ht 177.8 cm; Wt 127.3 kg
[~2018-08-21 09:42] MED LIST changes: +ACETAMINOPHEN500 M1 PO; +CYCLOBENZAPRINE10 MG PO; +IBUPROFEN800 MG PO
[2018-08-21 09:56] VITALS: Ht 177.8 cm; Wt 127.3 kg
[2018-08-21] MEDS ORDERED: TORADOL10 MG PO (10:37)
[2018-08-21 11:20] VITALS: BP 152/86
== END 2018-08-21 11:21 | disposition home or self-care (01) ==
LOC: D.ER 09:42
DX: S63.502A Unspecified sprain of left wrist, initial encounter (principal); V29.9XXA Motorcycle rider (driver) (passenger) injured in unspecified traffic accident, initial encounter; Y93.55 Activity, bike riding; Y92.89 Other specified places as the place of occurrence of the external cause

== ENCOUNTER → 2018-09-30 09:48 | Outpatient (CLI) | payer MEDICARE, MEDICAID ==
[2018-08-21 09:56] VITALS: BMI 40.2
[~2018-09-30 09:48] MED LIST changes: +TORADOL10 MG PO
== END | disposition home or self-care (01) ==
LOC: D.CT 09:48
PROVIDERS: ATTEND Orthopaedic Surgery
DX: S62.025A Nondisplaced fracture of middle third of navicular [scaphoid] bone of left wrist, initial encounter for closed fracture (principal)

== ENCOUNTER 2018-12-13 09:34 | Day surgery (SDC) | payer MEDICARE, MEDICAID ==
[2018-12-12 10:56] LABS: BASOPHILS 0.4 % (0-2); EOSINOPHILS 2.5 % (0-7); HEMATOCRIT 44.4 % (42.0-54.0); HEMOGLOBIN 15.1 g/dL (13.5-17.5); IMMATURE GRANULOCYTES 0.6 % (0-5); LYMPHOCYTES 25.8 % (15-50); MCH 31.9 pg (26.0-34.0); MCV 93.7 fL (80.0-100.0); MONOCYTES 6.1 % (2-11); NEUTROPHILS 64.6 % (40-80); PLATELET COUNT 202 10x3/uL (130-400); RBC 4.74 10x6/uL (4.20-6.10); RDW 14.2 % (11.5-14.5); WBC 7.2 10x3/uL (4.8-10.8)
[2018-12-12 11:04] LABS: APTT 26.9 SECONDS (22.8-39.4); CALC OSMOLALITY 284 mosm/kg (275-300); CALCIUM 8.7 mg/dL (8.5-10.1); CARBON DIOXIDE 28.6 mmol/L (21.0-32.0); CHLORIDE - SERUM 107 mmol/L (98-107); CREATININE - SERUM 0.8 mg/dL (0.6-1.3); GLUCOSE 91 mg/dL (74-106); INR 0.99 (0.85-1.17); POTASSIUM - SERUM 4.3 mmol/L (3.5-5.1); PROTIME 12.6 SECONDS (11.6-15.0); SODIUM 143 mmol/L (136-145); UREA NITROGEN 13 mg/dL (7-18); eGFR NON AFRICAN AMERICAN > 90 mL/min (90-120)
[~2018-12-13] VITALS: Ht 177.8 cm; Wt 127.0 kg
[2018-12-13 09:13] VITALS: BP 166/79; Ht 177.8 cm; Wt 127.0 kg
[2018-12-13] MEDS ORDERED: HYDROCODON-ACE1 EAC7 PO (12:58)
--- NOTE | 2018-12-13 13:25 | NUR ---
PATIENT AWAKE AND ALERT, DENIES PAIN. MEETS ANESTHESIA DISCHARGE CRITERIA
--- NOTE | 2018-12-13 14:18 | OP ---
PATIENT NAME: SEEMA GAFFNEY MEDICAL RECORD: [id number] :41 LOCATION:D.OPS ADMISSION DATE: SURGEON: MANJIT MEDEL DO DATE OF OPERATION: 12/13/2018 PROCEDURE PERFORMED: Left endoscopic carpal tunnel release. PREOPERATIVE DIAGNOSIS: Left carpal tunnel syndrome. POSTOPERATIVE DIAGNOSIS: Left carpal tunnel syndrome. INDICATIONS: Mr. Gaffney is a 78-year-old male who had a trapezium fracture. He also had had a nerve conduction study, which revealed a carpal tunnel syndrome with a distal motor latency above 4.3. He said that after the fracture had healed, he noticed that his carpal tunnel was worse and he wanted something done about it. He was aware of the risks including infection, bleeding, damage to nerves and vessels, need for further surgery, damage to the median nerve, continued numbness and pain and he signed the consent. SURGEON: Manjit Medel DO DESCRIPTION OF PROCEDURE: The patient was taken to the operative suite, laid in supine position, given general anesthetic and LMA was placed, given 2 grams of Ancef preoperatively. Left upper extremity was prepped and draped in sterile fashion. Timeout was performed, everyone was in agreement of correct side, site, patient and procedure. Esmarch was then used to exsanguinate the left upper extremity and tourniquet was inflated to 250 mmHg, was up for 9 minutes. Incision then began centered over the palmaris longus tendon achieving a little ulnar and then blunt dissection made with Gildanells down the carpal tunnel itself. The forearm fascia was released from distal to proximal and the carpal tunnel was entered then with the dilators. Once it was dilated up, the guide sheath was put in and then the camera. Once the transverse carpal ligament was seen, it was scraped and probed to ensure there was no transligamentous nerve. The blade was then brought in and elevated and the transverse carpal ligament was transected until fat herniated down into the carpal tunnel. This was all then removed with larger Ragnell and pickup and scissors and any remaining fibers of the left transverse carpal ligament were . Once that was completed, the tourniquet was let down, and 10 mL of 0.5% Marcaine with epinephrine was injected into the site. The site was then closed with 5-0 Monocryl in inverted interrupted fashion and Steri-Strips. Charles, 4 x 4's, Kerlix, and Coban was lightly wrapped on the wrist. He was awakened and taken to recovery area in stable condition. BLOOD LOSS: Minimal. COMPLICATIONS: None. TRANSINT:[id number] Voice Confirmation ID: [id number] DOCUMENT ID: [id number] OPERATIVE REPORT [id number] SEEMA GAFFNEY,MANJIT Tipton DO at 1418 CC: [id number] DICTATION DATE: 12/13/18 1258 MEAT CUTTER: 12/13/18 1329 [facility] [address] [place] [address]
--- NOTE | 2018-12-13 14:50 | NUR ---
AMBULATING AROUND ROOM WITHOUT UNSTEADINESS OR DIZZINESS. RIGHT HAND PIV DC'D WITH TIP INTACT. DISCHARGE INSTRUCTIONS REVIEWED WITH PATIENT 1456 [facility]
== END 2018-12-13 14:57 | disposition home or self-care (01) ==
LOC: D.OPS 09:34 → D.PAN 13:30 → D.OPS 13:30 → D.PAN 15:15
PROVIDERS: Anesthesiology; ATTEND Orthopaedic Surgery
DX: G56.02 Carpal tunnel syndrome, left upper limb (principal)

== ENCOUNTER 2019-05-28 08:42 | Emergency (ER) | payer MEDICARE, MEDICAID ==
[~2019-05-28] VITALS: Ht 177.8 cm; Wt 127.3 kg
[~2019-05-28 08:42] MED LIST changes: +HYDROCODON-ACE1 EAC7 PO
[2019-05-28 08:51] VITALS: Ht 177.8 cm; Wt 127.3 kg
[2019-05-28 10:42] LABS: LYMPHOCYTES 22.2 % (15-50); MCH 30.9 pg (26.0-34.0); MCHC 33.3 g/dL (31.0-37.0); MCV 92.8 fL (80.0-100.0); MEAN PLATELET VOLUME 11.1 fL (7.4-10.4); NEUTROPHILS 71.1 % (40-80); PLATELET COUNT 194 10x3/uL (130-400); RBC 4.85 10x6/uL (4.20-6.10); RDW 14.5 % (11.5-14.5); WBC 7.6 10x3/uL (4.8-10.8)
[2019-05-28 10:48] LABS: CALC OSMOLALITY 285 mosm/kg (275-300); CALCIUM 9.2 mg/dL (8.5-10.1); CARBON DIOXIDE 28.2 mmol/L (21.0-32.0); CHLORIDE - SERUM 106 mmol/L (98-107); CREATININE - SERUM 0.9 mg/dL (0.6-1.3); GLUCOSE 111 mg/dL (74-106); POTASSIUM - SERUM 4.2 mmol/L (3.5-5.1); SODIUM 143 mmol/L (136-145); UREA NITROGEN 12 mg/dL (7-18); eGFR NON AFRICAN AMERICAN 87 mL/min (90-120)
[2019-05-28 11:09] LABS: ALKALINE PHOSPHATASE 73 U/L (30-120); ALT (SGPT) 26 U/L (10-68); CREATINE KINASE 78 UL (21-232); MAGNESIUM - SERUM 2.1 mg/dL (1.8-2.4); PRO BNP 163 pg/mL (0-450); PROTEIN - SERUM 7.4 g/dL (6.4-8.2); TROPONIN-I < 0.017 ng/mL (0.000-0.060)
[2019-05-28] MEDS ORDERED: ALBUTEROL SULF8.5 GM INH (12:02)
[2019-05-28] MEDS ORDERED: KEFLEX500 MG PO (12:02)
[2019-05-28 12:40] VITALS: BP 128/71
== END 2019-05-28 12:43 | disposition home or self-care (01) ==
LOC: D.ER 08:42
PROVIDERS: Emergency Medicine
DX: R06.00 Dyspnea, unspecified (principal); J45.909 Unspecified asthma, uncomplicated; J32.9 Chronic sinusitis, unspecified; I10 Essential (primary) hypertension; K21.9 Gastro-esophageal reflux disease without esophagitis

== ENCOUNTER → 2020-05-17 09:23 | Outpatient (CLI) | payer MEDICARE, MEDICAID ==
[2020-04-20 17:15] VITALS: BMI 40.2
[~2020-05-17 09:23] MED LIST changes: +ADOXA100 MG PO; +ALBUTEROL SULF8.5 GM INH; +AMIODARONE HCL200 MG PO; +ERYTHROMYCIN OPT1 GM LEFT EYE; +MUCINEX600 MG PO; +PREDNISONE10 MG PO; +TRELEGY ELLIPT1 EACH INH
== END | disposition home or self-care (01) ==
LOC: D.MRI 05-14 11:30
PROVIDERS: ATTEND Nurse Practitioner Family
DX: M75.122 Complete rotator cuff tear or rupture of left shoulder, not specified as traumatic (principal)

== ENCOUNTER → 2020-06-21 18:00 | Outpatient (CLI) | payer MEDICARE, MEDICAID ==
[2020-04-20 17:15] VITALS: BMI 40.2
== END | disposition home or self-care (01) ==
LOC: D.LABREF 18:00
PROVIDERS: ATTEND Orthopaedic Surgery
DX: M19.012 Primary osteoarthritis, left shoulder (principal)

== ENCOUNTER 2020-06-22 16:34 | Inpatient (IN) | payer MEDICARE, MEDICAID ==
[~2020-06-22] VITALS: Ht 177.8 cm; Wt 131.8 kg
[2020-07-30] MEDS ORDERED: VITAMIN A10000 UNIT PO (10:10)
[2020-07-30] MEDS ORDERED: AMIODARONE HCL200 MG PO (10:10)
[2020-07-30 10:11] LABS: ANION GAP 11.2 mmol/L (8-16); CALCIUM 9.1 mg/dL (8.5-10.1); CREATININE - SERUM 1.2 mg/dL (0.6-1.3); POTASSIUM - SERUM 4.2 mmol/L (3.5-5.1)
[2020-07-30] MEDS ORDERED: CENTRUM MEN'S1 EACH PO (10:11)
[2020-07-30] MEDS ORDERED: OSTEO BI-FLEX1 EAC1 PO (10:11)
[2020-07-30] MEDS ORDERED: VITAMIN D 22000 UNIT PO (10:11)
[2020-07-30 10:12] LABS: BASOPHILS 0.9 % (0-2); EOSINOPHILS 1.5 % (0-7); HEMATOCRIT 44.6 % (42.0-54.0); LYMPHOCYTES 21.6 % (15-50); MCHC 33.7 g/dL (31.0-37.0); MCV 94.9 fL (80.0-100.0); MEAN PLATELET VOLUME 9.1 fL (7.4-10.4); MONOCYTES 7.2 % (2-11); NEUTROPHILS 68.8 % (40-80); RDW 14.5 % (11.5-14.5); WBC 7.8 10x3/uL (4.8-10.8)
[2020-07-30] MEDS ORDERED: GREEN TEA (10:12)
[2020-07-30 10:15] LABS: PLATELET COUNT 203 10x3/uL (130-400)
[2020-07-30 10:29] LABS: BILIRUBIN NEGATIVE (NEGATIVE); KETONE NEGATIVE (NEGATIVE); NITRITE NEGATIVE (NEGATIVE); UROBILINOGEN NORMAL mg/dL (< 2)
[2020-07-30 10:30] LABS: BACTERIA FEW HPF (NONE SEEN); SQUAMOUS EPITHELIAL 0-5 HPF (0-4); WHITE CELLS - URINE 0-5 HPF (0-1)
[2020-07-30 10:33] LABS: APTT 24.7 SECONDS (22.8-39.4); INR 1.06 (0.85-1.17); PROTIME 12.8 SECONDS (11.6-15.0)
[2020-08-04] VITALS (14 sets, daily range): BP systolic 102–147; BP diastolic 5–88; Ht 177.8 cm; Wt 131.8 kg
--- NOTE | 2020-08-04 08:29 | NUR ---
GROUNDING PAD RIGHT THIGH LOT#[id number] EXP 12/28/21 PLASMA BLADE SET TO 6/8 ATRAFFIC KEPT TO MINIMUM
--- NOTE | 2020-08-04 13:17 | OP ---
PATIENT NAME: SEEMA GAFFNEY MEDICAL RECORD: [id number] :41 LOCATION:D[facility] ADMISSION DATE:08/04/20 SURGEON: MANJIT MEDEL DO DATE OF OPERATION: 08/04/2020 PROCEDURE PERFORMED: Left reverse total shoulder arthroplasty. PREOPERATIVE DIAGNOSIS: Left shoulder rotator cuff tear arthropathy POSTOPERATIVE DIAGNOSIS: Left shoulder rotator cuff tear arthropathy. INDICATIONS: Mr. Gaffney is a 80-year-old male who had a right shoulder done a couple years ago for the same thing. He got tired dealing with the pain and affecting his activities of daily living. He is aware of the risks including infection, bleeding, fracture, damage to nerves, vessels in the area, continued pain, loss of motion of the shoulder, need for further surgery, and even , and he signed the consent. SURGEON: Manjit Medel DO DESCRIPTION OF PROCEDURE: The patient was taken to the operative suite after given a block by anesthesia in the preoperative area, given 900 mg clindamycin, laid in the supine position, sedated and intubated, he was then placed in the beach chair position. The left shoulder was prepped and draped in sterile fashion. Timeout was performed. Everyone was in agreement with the correct site, side, patient, and procedure. I then began by making an incision over the deltopectoral interval. Made careful dissection down to the deltopectoral interval, freed up the cephalic vein, took it laterally and took the clavipectoral fascia off, released the proximal centimeter of the pectoralis tendon on the humerus, his long head of the biceps tendon since ruptured and there is no indication of it there. I then opened up towards the shoulder and he had very few remaining fibers of any remnant of any rotator cuff. I then externally rotated the humerus and peeled off what was left of the subscapularis tendon and then cut the humeral head off the guide. I then removed the humeral head and exposed the glenoid, removed the labrum, put a centering pin in, reamed and then impacted in the baseplate. I then put in a 30 screw and three 25 mm peripheral screws superior, anterior posterior, and the posterior inferior spots. I then impacted on the glenosphere with max offset inferiorly and then exposed the humerus and reamed to a 16 and then impacted a 16 stem. Broached 16 stem and then reduced the trial. Standard tray fit well and then I had good tension on the conjoined tendon as well as the deltoid fibers. I then dislocated that and removed the trials and put in the actual 16 stem with the tray and impacted the tray on and held into place, I then reduced the shoulder, had good motion. There was no gapping or shucking in the conjoined tendon as well as the deltoid fibers had good tension. He had good range of motion as well. I then irrigated with 10% povidone-iodine and 500 mL normal saline solution, irrigated that out with over a liter of normal saline, then put a drain in and exiting posteriorly, put in Harry, vancomycin and tobramycin powder. Jaycee Gonzales, certified assistant professor surgical technology, then closed the skin with 2-0 Vicryl in an inverted interrupted fashion, 4-0 Monocryl running on the skin. He was then dressed with a Prineo glue, Telfa and Tegaderm to Tegaderm securing the drain. He was awakened and taken to recovery in stable condition. Blood loss approximately 300 mL. COMPLICATIONS: None. OPERATIVE REPORT [id number] SEEMA GAFFNEY TRANSINT:[id number] Voice Confirmation ID: [id number] DOCUMENT ID: [id number] MANJIT MEDEL DO at 1317 CC: [id number] DICTATION DATE: 08/04/20 0854 CUSTOMER SALES CONSULTANT: 08/04/20 1148 ADM IN [facility] [address] [place] [address]
[2020-08-05] VITALS: BP 130/70
[2020-08-05 04:00] VITALS: BP 104/64
[2020-08-05 08:03] LABS: BASOPHILS 0.3 % (0-2); EOSINOPHILS 0.6 % (0-7); HEMATOCRIT 39.6 % (42.0-54.0); HEMOGLOBIN 13.3 g/dL (13.5-17.5); LYMPHOCYTES 10.1 % (15-50); MCH 32.3 pg (26.0-34.0); MCHC 33.6 g/dL (31.0-37.0); MCV 95.9 fL (80.0-100.0); MEAN PLATELET VOLUME 9.5 fL (7.4-10.4); MONOCYTES 8.5 % (2-11); NEUTROPHILS 80.5 % (40-80); PLATELET COUNT 175 10x3/uL (130-400); RBC 4.13 10x6/uL (4.20-6.10); RDW 14.3 % (11.5-14.5)
[2020-08-05 08:22] LABS: ALBUMIN 3.7 g/dL (3.4-5.0); ANION GAP 12.4 mmol/L (8-16); BILIRUBIN - TOTAL 0.59 mg/dL (0.2-1.3); CALCIUM 8.4 mg/dL (8.5-10.1); CREATININE - SERUM 1.2 mg/dL (0.6-1.3); POTASSIUM - SERUM 4.4 mmol/L (3.5-5.1); PROTEIN - SERUM 6.6 g/dL (6.4-8.2)
[2020-08-05] MEDS ORDERED: HYDROCODON-ACE1 EAC7 PO (08:33)
[2020-08-05 08:46] VITALS: BP 123/68
[2020-08-05 13:10] VITALS: BP 125/69
--- NOTE | 2020-08-05 14:20 | NUR ---
IV THERAPY REMOVED FROM RIGHT FOREARM WITH TIP INTACT DISCHARGE INSTRUCTIONS GIVEN. DAVOL DRAIN REMOVED PER ORDER. WAITING ON RIDE.
== END 2020-08-05 14:38 | disposition home or self-care (01) | DRG 483 ==
LOC: D.SDCHOLD 08-04 05:15 → D.MS 08-04 09:56
PROVIDERS: Emergency Medicine; ADMIT Orthopaedic Surgery; ATTEND Orthopaedic Surgery
PROC: 0RRK00Z Replacement of Left Shoulder Joint with Reverse Ball and Socket Synthetic Substitute, Open Approach (ICD-10-PCS; principal; 2020-08-04 07:00)
DX: M75.102 Unspecified rotator cuff tear or rupture of left shoulder, not specified as traumatic (principal); J96.11 Chronic respiratory failure with hypoxia; K21.9 Gastro-esophageal reflux disease without esophagitis; I10 Essential (primary) hypertension; J43.9 Emphysema, unspecified